=== PATIENT | male | born 1945 | race Caucasian/White ===

== ENCOUNTER → 2021-02-06 | Day surgery (SDC) | payer OTHER ==
[~2021-02-06] MED LIST: ASPIRIN CHEWABL81 MG PO; CO Q-10100 MG PO; CRESTOR5 MG PO; IRON159 MG PO; MEDROL 4MG DOSEP4 MG PO; METHYLPREDNISOLONE PO; VITAMIN B-121000 MC1 PO; VITAMIN D325 MC3 PO; ZYRTEC10 M3 PO
== END | disposition home or self-care (01) ==
LOC: FAS 08:53
DX: D12.8 Benign neoplasm of rectum (principal); K21.9 Gastro-esophageal reflux disease without esophagitis; K27.9 Peptic ulcer, site unspecified, unspecified as acute or chronic, without hemorrhage or perforation; D12.6 Benign neoplasm of colon, unspecified; I25.10 Atherosclerotic heart disease of native coronary artery without angina pectoris; I25.2 Old myocardial infarction; F17.210 Nicotine dependence, cigarettes, uncomplicated; E78.5 Hyperlipidemia, unspecified; E78.00 Pure hypercholesterolemia, unspecified; Z95.5 Presence of coronary angioplasty implant and graft; Z91.018 Allergy to other foods; Z20.822 Contact with and (suspected) exposure to COVID-19; Z88.8 Allergy status to other drugs, medicaments and biological substances; Z90.49 Acquired absence of other specified parts of digestive tract; Z98.890 Other specified postprocedural states; Z80.0 Family history of malignant neoplasm of digestive organs
CPT/HCPCS: 88305; J2250; J2704; J7120

== ENCOUNTER → 2021-04-10 | Day surgery (SDC) | payer OTHER ==
[~2021-04-10] VITALS: Ht 175.3 cm; Wt 72.6 kg
== END | disposition home or self-care (01) ==
LOC: FAS 06:48
DX: D12.8 Benign neoplasm of rectum (principal); I71.4 Abdominal aortic aneurysm, without rupture; R00.1 Bradycardia, unspecified; F17.200 Nicotine dependence, unspecified, uncomplicated; I25.2 Old myocardial infarction; Z88.1 Allergy status to other antibiotic agents; Z95.5 Presence of coronary angioplasty implant and graft
CPT/HCPCS: 93005; J1610; J2250; J2704; J7120

== ENCOUNTER → 2021-09-14 | Day surgery (SDC) | payer OTHER ==
[~2021-09-14] VITALS: Ht 175.3 cm; Wt 72.6 kg
== END | disposition home or self-care (01) ==
LOC: FAS 08-31 11:30
DX: D12.8 Benign neoplasm of rectum (principal); E78.00 Pure hypercholesterolemia, unspecified; D50.9 Iron deficiency anemia, unspecified; F17.210 Nicotine dependence, cigarettes, uncomplicated; Z88.8 Allergy status to other drugs, medicaments and biological substances; Z87.19 Personal history of other diseases of the digestive system; Z79.82 Long term (current) use of aspirin; Z80.0 Family history of malignant neoplasm of digestive organs
CPT/HCPCS: J2704; J7120

== ENCOUNTER → 2022-04-12 | Day surgery (SDC) | payer OTHER ==
[~2022-04-12] VITALS: Ht 175.3 cm; Wt 72.6 kg
[~2022-04-12] MED LIST changes: +FLOMAX0.4 MG PO
== END | disposition home or self-care (01) ==
LOC: FAS 10:14
DX: K62.1 Rectal polyp (principal); K57.30 Diverticulosis of large intestine without perforation or abscess without bleeding; K64.8 Other hemorrhoids; Z86.010 Personal history of colon polyps; J44.9 Chronic obstructive pulmonary disease, unspecified; K21.9 Gastro-esophageal reflux disease without esophagitis; E78.5 Hyperlipidemia, unspecified; F17.210 Nicotine dependence, cigarettes, uncomplicated; Z88.1 Allergy status to other antibiotic agents; Z79.82 Long term (current) use of aspirin; Z79.899 Other long term (current) drug therapy; Z72.89 Other problems related to lifestyle
CPT/HCPCS: J2704; J7120